=== PATIENT | male | born 1950 | race Caucasian/White ===

== ENCOUNTER → 2021-08-29 | Outpatient (CLI) | payer MEDICARE, OTHER ==
[~2021-08-29] MED LIST: Hydroxyurea500 MG
[2021-08-29 10:27] LABS: Source, Urine Clean Catch
[2021-08-29 11:45] LABS: Bilirubin, Urine Neg (Neg); Blood, Urine 1+ (Neg); Glucose Qualitative, Urine Neg (Neg); Ketones, Urine Neg (Neg); Leukocyte Esterase, Urine Neg (Neg); Nitrite, Urine Neg (Neg); Protein, Urine Neg (Neg); Urobilinogen, Urine NORM (Normal)
[2021-08-29 11:53] LABS: Appearance, Urine Clear (Clear); Color, Urine Pale Yellow (P-Yellow); White Blood Cells, Urine 0-2 /hpf (0-5)
[2021-08-29 11:54] LABS: Bacteria Rare /hpf; Squamous Epithelial Cells Rare /hpf (Few)
[2021-08-29 12:22] LABS: Stool Occult Bld Immuno 1 Positive (NEGATIVE)
== END | disposition home or self-care (01) ==
LOC: LAB SHORT 10:23
PROVIDERS: Nurse Practitioner Family
DX: D75.839 Thrombocytosis, unspecified (principal)
CPT/HCPCS: 81001; 82274

== ENCOUNTER 2023-01-01 09:27 | Emergency (ER) | payer MEDICARE, OTHER ==
[~2023-01-01] VITALS: Ht 188 cm; Wt 108.9 kg
[2023-01-01] MEDS ORDERED: Prednisone20 MG PO (09:45)
[2023-01-01 09:46] VITALS: BP 162/100
== END 2023-01-01 10:00 | disposition home or self-care (01) ==
LOC: ER 09:27
DX: L23.7 Allergic contact dermatitis due to plants, except food (principal); L20.9 Atopic dermatitis, unspecified; Z79.899 Other long term (current) drug therapy
CPT/HCPCS: 99283

== ENCOUNTER 2023-03-29 08:42 | Emergency (ER) | payer MEDICARE, OTHER ==
[~2023-03-29] VITALS: Ht 188 cm; Wt 106.6 kg
[~2023-03-29 08:42] MED LIST changes: +Prednisone20 MG PO
[2023-03-29 09:18] VITALS: BP 159/94
[2023-03-29] MEDS ORDERED: Prednisone20 MG PO (09:39)
== END 2023-03-29 09:44 | disposition home or self-care (01) ==
LOC: ER 08:42
DX: L23.7 Allergic contact dermatitis due to plants, except food (principal)
CPT/HCPCS: 99282